=== PATIENT | female | born 1945 | race Caucasian/White ===

== ENCOUNTER → 2021-03-20 | Outpatient (CLI) | payer MEDICARE, BC ==
[2021-03-20 18:22] LABS: BASO # 0.1 x10^3/uL (0.0-0.2); BASO % 1 % (0-3); EOS # 0.3 x10^3/uL (0.0-0.7); EOS % 4 % (0-3); HEMATOCRIT 39.1 % (36.0-47.0); HEMOGLOBIN 12.7 g/dL (12.0-15.5); LYMPH # 0.8 x10^3/uL (1.0-4.8); LYMPH % 11 % (24-48); MEAN CORPUSCULAR HEMOGLOBIN 26 pg (25-35); MEAN CORPUSCULAR HGB CONC 32 g/dL (31-37); MEAN CORPUSCULAR VOLUME 81 fL (79-100); MONO # 0.7 x10^3/uL (0.0-1.1); MONO % 10 % (0-9); NEUT # 5.4 x10^3uL (1.8-7.7); NEUT % 74 % (31-73); PLATELET COUNT 260 x10^3/uL (140-400); RED BLOOD COUNT 4.84 x10^6/uL (3.50-5.40); RED CELL DISTRIBUTION WIDTH 14.6 % (11.5-14.5); WHITE BLOOD COUNT 7.2 x10^3/uL (4.0-11.0)
[2021-03-20 18:30] LABS: ALBUMIN 3.8 g/dL (3.4-5.0); CALCIUM 9.3 mg/dL (8.5-10.1); CREATININE 1.9 mg/dL (0.6-1.0); GFR 25.9; POTASSIUM 3.6 mmol/L (3.5-5.1); TOTAL BILIRUBIN 0.3 mg/dL (0.2-1.0); TOTAL PROTEIN 7.8 g/dL (6.4-8.2)
--- NOTE | 2021-03-21 08:32 | RAD ---
EXAM: Chest, 2 views. HISTORY: Cough. Pneumonia. COMPARISON: None. FINDINGS: 2 views of chest are obtained. There is elevation of the right hemidiaphragm. There is a mo derate hiatal hernia. There is bilateral infrahilar compressive atelectasis. There is no consolidatio n, pleural effusion or pneumothorax. The heart is normal in size. IMPRESSION: Bilateral infrahilar atelectasis. No acute pulmonary finding. Electronically signed by: Sera Tate MD (03/21/2021 8:30 AM) [id number]
== END ==
LOC: RAD 17:36
PROVIDERS: ATTEND Specialist
DX: J98.11 Atelectasis (principal); K44.9 Diaphragmatic hernia without obstruction or gangrene
CPT/HCPCS: 36415; 71046; 80053; 85025; 87040

== ENCOUNTER → 2021-04-23 | Outpatient (CLI) | payer MEDICARE, BC ==
--- NOTE | 2021-04-23 17:21 | RAD ---
XR CHEST 2V History: Reason: PNEUMOMIA FEB 2021, CHEST PAIN, COUGH, SHORTNESS OF BREATH / Spl. Instructions: / H istory: Comparison: March 12, 2021 Findings: Elevation the right hemidiaphragm. Large hiatal hernia. Mild bibasilar linear atelectasis. No consoli dation or pleural effusion. No pneumothorax. Unchanged heart size. Impression: 1. Mild bibasilar linear linear atelectasis. 2. Large hiatal hernia. Electronically signed by: Luis Read DO (04/23/2021 5:18 PM) [facility]
== END ==
LOC: RAD 16:51
PROVIDERS: ATTEND Specialist
DX: J98.11 Atelectasis (principal); K44.9 Diaphragmatic hernia without obstruction or gangrene; R05.9 Cough, unspecified; R06.02 Shortness of breath; R07.9 Chest pain, unspecified
CPT/HCPCS: 71046

== ENCOUNTER → 2021-04-24 | Outpatient (CLI) | payer MEDICARE, BC ==
[2021-04-24 12:57] LABS: BASO % 0 % (0-3); EOS % 0 % (0-3); HEMATOCRIT 38.6 % (36.0-47.0); HEMOGLOBIN 12.6 g/dL (12.0-15.5); LYMPH # 0.4 x10^3/uL (1.0-4.8); LYMPH % 11 % (24-48); MEAN CORPUSCULAR HEMOGLOBIN 26 pg (25-35); MEAN CORPUSCULAR HGB CONC 33 g/dL (31-37); MEAN CORPUSCULAR VOLUME 79 fL (79-100); MONO # 0.5 x10^3/uL (0.0-1.1); MONO % 14 % (0-9); NEUT # 2.7 x10^3uL (1.8-7.7); NEUT % 74 % (31-73); PLATELET COUNT 135 x10^3/uL (140-400); RED BLOOD COUNT 4.91 x10^6/uL (3.50-5.40); RED CELL DISTRIBUTION WIDTH 15.1 % (11.5-14.5); WHITE BLOOD COUNT 3.7 x10^3/uL (4.0-11.0)
[2021-04-24 13:00] LABS: ALBUMIN 3.5 g/dL (3.4-5.0); CALCIUM 8.8 mg/dL (8.5-10.1); GFR 24.4; POTASSIUM 3.4 mmol/L (3.5-5.1); TOTAL BILIRUBIN 0.2 mg/dL (0.2-1.0); TOTAL PROTEIN 7.1 g/dL (6.4-8.2)
== END ==
LOC: LAB 11:15
PROVIDERS: ATTEND Specialist
DX: R05.9 Cough, unspecified (principal)
CPT/HCPCS: 36415; 80053; 85025; 87040